=== PATIENT | male | born 1970 | race American Indian/Alaskan Native ===

== ENCOUNTER 2016-10-17 05:18 | Emergency (ER) | payer SELFPAY ==
[2016-10-17 07:09] VITALS: BP 162/113
[2016-10-17] MEDS ORDERED: NORCO 5/325 PO ONE (09:04)
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
[2016-10-17] MEDS ORDERED: BOOSTRIX IM ONE (10:02)
[2016-10-17] MEDS ORDERED: TRIPLE ANTIBIOTIC TP ONE (10:02)
== END 2016-10-17 10:37 | disposition home or self-care (01) ==
LOC: ED 05:18
DX: S01.81XA Laceration without foreign body of other part of head, initial encounter (principal); I10 Essential (primary) hypertension; F17.200 Nicotine dependence, unspecified, uncomplicated; X58.XXXA Exposure to other specified factors, initial encounter; Y93.9 Activity, unspecified; Y92.9 Unspecified place or not applicable; Y99.9 Unspecified external cause status
CPT/HCPCS: 90471; 90715; 99282; A6250

== ENCOUNTER 2016-10-28 13:34 | Emergency (ER) | payer SELFPAY ==
[2016-10-28 14:28] VITALS: BP 134/99
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
== END 2016-10-28 15:14 | disposition home or self-care (01) ==
LOC: ED 13:34
DX: S01.01XD Laceration without foreign body of scalp, subsequent encounter (principal); S01.111D Laceration without foreign body of right eyelid and periocular area, subsequent encounter; I10 Essential (primary) hypertension; F17.200 Nicotine dependence, unspecified, uncomplicated; W45.8XXD Other foreign body or object entering through skin, subsequent encounter; Y93.89 Activity, other specified; Y99.8 Other external cause status; Y92.89 Other specified places as the place of occurrence of the external cause